=== PATIENT | female | born 1990 | race Caucasian/White ===

== ENCOUNTER 2016-09-09 01:11 | Day surgery (SDC) ==
[2016-09-09 01:47] LABS: URINE SOURCE CLEAN CATCH
[2016-09-09 01:55] LABS: BILIRUBIN URINE NEGATIVE (NEGATIVE); BLOOD URINE 1+ (NEGATIVE); CLARITY CLEAR (CLEAR); COLOR YELLOW; GLUCOSE URINE NEGATIVE (NEGATIVE); LEUKOCYTES URINE TRACE (NEGATIVE); NITRITE URINE NEGATIVE (NEGATIVE); PH URINE 6.5; PROTEIN URINE TRACE mg/dL (NEGATIVE); UROBILINOGEN URINE NORMAL
--- NOTE | 2016-09-09 02:00 | PROVIDER DOCUMENTATION ---
HPI-Abdominal Pain/GI Problem - General Source: patient - History of Present Illness-ABD Nature of Presenting Problems: 26 YOF STATES SHE WAS AT HOME TONIGHT AND STATES HER DOG WAS LAYING ON HER THE WAY IT DOES WHEN SHE NEEDS TO COME TO THE ED TO BE CHECKED.PT STATES ABDOMINAL PAIN X 1 WEEK. PT STATES SHE HAS HAD TRACE OF BLOOD AND MUCUS IN HER STOOL. Abdominal Pain Onset Location: reports: generalized abdomen Pain Radiation: reports: no radiation Quality of Pain: reports: aching Severity in ED: reports: moderate Onset/Duration: reports: 1 week ago Timing: reports: still present Activities at Onset: reports: light activity Modifying Factors: improves with: nothing Bruising or Bleeding Gums?: No Similar Symptoms Previously?: No Recently seen or treated by another doctor?: No <Lamberto Padgett - Last Filed: 09/09/16 01:53> <Carlos Wesley - Last Filed: 09/09/16 04:25> - General Chief Complaint: Abdominal Pain Stated Complaint: ABD PAIN Time Seen by Provider: 09/09/16 01:49 Allergies/Adverse Reactions: Patient Allergies Allergy/AdvReac Type Severity Reaction Status Date / Time No Known Allergies Allergy Verified 09/09/16 01:25 Home Medications: Home Medication List Medication Instructions Recorded Confirmed Last Taken Type Citalopram [Celexa] 1 tab PO DAILY 09/09/16 09/09/16 Unknown History Cyclobenzaprine [Flexeril] 1 tab PO TID 09/09/16 09/09/16 Unknown History Hydrocodone/Acetaminophen [Eclectic 1 tab PO TID 09/09/16 09/09/16 Unknown History 7.5-325 Tablet] Ibuprofen 1 tab PO Q6H PRN 09/09/16 09/09/16 Unknown History Levonorgestrel-Eth Estradiol 1 tab PO DAILY 09/09/16 09/09/16 Unknown History [Seasonale] Review of Systems - Adult - REVIEW OF SYSTEMS - ADULT Constitutional: denies: chills, fever Eyes: reports: no symptoms reported Ears, Nose, Mouth & Throat: reports: no symptoms reported Cardiovascular: denies: chest pain, palpitations, syncope Respiratory: denies: cough, shortness of breath, wheezing Gastrointestinal: reports: abdominal pain, nausea. denies: diarrhea, vomiting Genitourinary: reports: no symptoms reported Musculoskeletal: denies: back pain, neck pain Integumentary: reports: no symptoms reported Neurological: denies: dizziness/vertigo, headache/migraines, syncope Psychiatric: reports: no symptoms reported Endocrine: reports: no symptoms reported Hematologic/Lymphatic: reports: no symptoms reported Allergic/Immunologic: reports: no symptoms reported All Other Systems: Reviewed and Negative <Lamberto Padgett - Last Filed: 09/09/16 01:53> Past History - Adult - PAST MEDICAL HISTORY-ADULT Review of Records: reports: Nursing Assessment Review, Medications Reviewed - IMMUNIZATION STATUS Childhood Immunizations: See Nurse Assessment Flu Vaccine: See Nurse Assessment - SOCIAL HISTORY Smoking: denies Substance Use: denies Alcohol Use Frequency: never Living Situation: family <Lamberto Padgett - Last Filed: 09/09/16 01:53> Physical Exam-General - PHYSICAL EXAM-ADULT Initial Vital Signs Reviewed: Yes - CONSTITUTIONAL General Appearance: alert, mild distress - EYES Eyes: PERRL/EOMI, pink conjunctivae - HEAD, EARS, NOSE, MOUTH & THROAT HENMT: normocephalic/atraumatic, moist mucous membranes - NECK Neck: non-tender, full range of motion, supple - RESPIRATORY Respiratory: chest non-tender, lungs clear, normal breath sounds - CARDIOVASCULAR Cardiovascular: normal peripheral pulses, regular rate, rhythm - GASTROINTESTINAL (ABDOMEN) Abdominal Exam: normal bowel sounds, non tender, soft - LYMPHATIC Lymphatic: no adenopathy - MUSCULOSKELETAL Back Exam: normal inspection, no CVA tenderness, no vertebral tenderness Extremity: normal range of motion, non-tender - SKIN Integumentary: normal color, normal turgor, warm/dry - NEUROLOGIC Neurologic: grossly normal - PSYCHIATRIC Psych/Mental Status: oriented x 3 <Lamberto Padgett - Last Filed: 09/09/16 01:53> Departure <Lamberto Padgett - Last Filed: 09/09/16 01:53> - Departure Time of Disposition Order: 04:20 Certified Medical Emergency: Emergent <Carlos Wesley - Last Filed: 09/09/16 04:25> - Departure DIAGNOSIS: Appendicitis Disposition: ADMITTED INPATIENT 09 Condition: Critical Referrals: Lito English MD [Primary Care Provider] - Attestation - Scribe Verification/Attestation Scribe:: Lamberto Padgett Acting as Scribe for:: Carlos Wesley Scribe documention review:: This chart was documented by a scribe and accurately reflects the service the provider performed and the decisions made by the provider. <Lamberto Padgett - Last Filed: 09/09/16 01:53> Physician Attestation
[2016-09-09 02:17] LABS: URINE CULTURE PL NEEDED? YES; URINE EPITHELIAL CELLS <10 /HPF (<10); URINE RBC <10 /HPF (<10); URINE WBC <10 /HPF (<10)
[2016-09-09 02:19] LABS: UR AMPHETAMINES QUAL PRESUMPTIVE POSITIVE (NONE DETECT); UR BARBITUATES QUAL NONE DETECTED (NONE DETECT); UR BENZODIAZEPIN QUAL NONE DETECTED (NONE DETECT); UR CANNABINOIDS QUAL PRESUMPTIVE POSITIVE (NONE DETECT); UR COCAINE QUAL NONE DETECTED (NONE DETECT); UR MDMA QUAL NONE DETECTED (NONE DETECT); UR METHADONE QUAL NONE DETECTED (NONE DETECT); UR METHAMPHETAMINE QUAL NONE DETECTED (NONE DETECT); UR OPIATES QUAL PRESUMPTIVE POSITIVE (NONE DETECT); UR OXYCODONE QUAL NONE DETECTED (NONE DETECT); UR PCP QUAL NONE DETECTED (NONE DETECT); UR TCA QUAL NONE DETECTED (NONE DETECT)
[2016-09-09 02:33] LABS: MANUAL DIFF NEEDED? NO
[2016-09-09 02:45] LABS: BASO% 0.3 % (0.0-0.8); EOS# 0.15 X1000 (0.0-0.7); EOS% 1.3 % (0.0-10.0); HEMATOCRIT 36.4 % (37.0-47.0); HEMOGLOBIN 12.2 g/dL (12.0-16.0); IMM GRAN# 0.02 X1000 (0.0-0.04); IMM GRAN% 0.2 % (0.0-0.5); LYMPH# 4.19 X1000 (1.2-3.4); LYMPH% 35.1 % (20.5-51.1); MCH 27.7 PG (27-31); MCHC 33.5 g/dL (33-37); MCV 82.7 FL (81-99); MONO# 0.83 X1000 (0.11-0.59); NEUT% 56.1 % (42.2-75.2); PLT 249 X1000 (130-400)
[2016-09-09 03:09] LABS: AGAP 11; ALBUMIN 4.1 g/dL (3.5-5.0); ALKALINE PHOSPHATASE 45 U/L (32-104); AMYLASE 46 U/L (20-200); BUN 10 mg/dL (8-22); CALCIUM 9.3 mg/dL (8.8-10.2); CHLORIDE 103 mmol/L (98-107); COSMO 275; GOT 17 U/L (10-30); GPT 12 U/L (10-36); LIPASE 19 U/L (13-60); POTASSIUM 3.1 mmol/L (3.5-5.1); SODIUM 138 mmol/L (136-145); TCO2 24 mmol/L (25-35); TOTAL PROTEIN 6.2 g/dL (6.3-8.3)
[2016-09-09] MEDS ORDERED: KLOR-CON PO ONE (03:55)
[2016-09-09] MEDS ORDERED: ZOSYN 3.375 GM/NS 50 ML IV ONE (04:20)
[2016-09-09] MEDS ORDERED: ZOFRAN IV PRN (04:22)
[2016-09-09] MEDS ORDERED: NS 1,000 ML IV SCH (04:30)
[2016-09-09] MEDS: MORPHINE IV PRN ×3 (06:03→15:59)
[2016-09-09] MEDS ORDERED: NORCO-7.5 PO PRN (07:52)
[2016-09-09] MEDS ORDERED: TYLENOL ARTHRITIS PO PRN (07:53)
[2016-09-09] MEDS ORDERED: SODIUM CHLORIDE 0.9% INJ PRN (07:54)
[2016-09-09] MEDS ORDERED: PHENERGAN IV PRN (07:54)
[2016-09-09] MEDS ORDERED: MARCAINE 0.25% PF/EPI 1:200,000 ONE (08:14)
[2016-09-09] MEDS ORDERED: LR 1,000 ML ONE (08:14)
--- NOTE | 2016-09-09 08:16 | HISTORY AND PHYSICAL ---
HISTORY OF PRESENT ILLNESS: Monica Diallo is a 26-year-old, white female who is a patient Dr. Lito English. For the last week, she has been experiencing lower abdominal pain and bloating. She presented to the [facility] Emergency Department because of this abdominal pain localized to her right lower quadrant. She came to the ER with a friend. She was evaluated at [facility] which included a CT scan of her abdomen and pelvis which suggested appendicitis, as did her exam. I was notified early this morning. The patient was transferred from [place] to [facility] for possible surgical treatment. 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 She has had colonoscopy and upper endoscopy. MEDICATIONS: control pills. ALLERGIES: No known drug allergies. SOCIAL HISTORY: She works in [employer]. She recently applied for Medicaid because she went to a clinic recently for a Pap smear and to have control pills prescribed. She recently broke up with her boyfriend. She lives alone in an apartment and has at least 2 dogs which she is concerned about. She had no family that she wanted me to contact. She does smoke. REVIEW OF SYSTEMS: A 14-point review of systems was performed and except for the history of present illness and the past medical history, it is negative. FAMILY HISTORY: Noncontributory. PHYSICAL EXAMINATION: GENERAL: On examination, Ms. Diallo is a young, tall, slim, white female in no acute distress. HEENT EXAMINATION: No jaundice. No oral lesions. LYMPHATICS: No cervical or supraclavicular lymphadenopathy. HEART: Regular rate. LUNGS: Clear to auscultation and percussion bilaterally. ABDOMEN: Flat. There was no previous scar. No evidence of hernia. She was tender to palpation in the right lower quadrant but she did not have evidence of an acute abdomen or any abdominal distention. She had mild right costovertebral tenderness. There was no palpable abdominal mass. RECTAL/VAGINAL: Examinations were not performed. EXTREMITIES: She does have palpable peripheral pulses. No peripheral edema. NEUROLOGICAL: She is alert and oriented x3, and appropriate. DIAGNOSTIC DATA: Her white blood cell count was 11. Electrolytes were within normal limits. A CT scan reported to me by the ED physician suggests early appendicitis. There is no final report of the CT scan available at this time. IMPRESSION: Acute appendicitis. PLAN: Laparoscopic, possible open appendectomy this morning. I have discussed the procedure in detail with her at the bedside in room 454, [address] [place]. We specifically discussed the risks of surgery which include bleeding, infection, injury to intra-abdominal contents with trocar placement, removal of a normal appendix, conversion of a laparoscopic to open appendectomy, possible ruptured appendix requiring prolonged hospitalization and possibly a drain left at the time of surgery, leakage of the appendiceal stump requiring reoperation for infection. She understands different treatment options for acute appendicitis including IV antibiotics. She understands the operation and its risks, and she wants to proceed with surgery.
--- NOTE | 2016-09-09 08:20 | Diag Imaging Result Document ---
PROCEDURE NAME: CT ABD/PELVIS W/ IV CONT ONLY - 09/09/2016 CT ABDOMEN AND PELVIS WITH INTRAVENOUS CONTRAST: TECHNIQUE: Dose-reduction protocol. FINDINGS: The lower lungs are clear. Normal liver, spleen, pancreas, gallbladder, and adrenal glands. There are nonobstructing renal stones bilaterally. Normal enhancement of the kidneys. No hydronephrosis. Normal aorta. No bowel obstruction. The appendix is distended and there is mild adjacent inflammation. No free air. No abscess. There are bilateral small ovarian cysts. Normal uterus. The urinary bladder is not distended. IMPRESSION: 1. Acute appendicitis. 2. Nonobstructing renal stones. A preliminary report was given at 4:10 a.m.
[2016-09-09] MEDS ORDERED: DIPRIVAN 1% ONE (08:45)
[2016-09-09] MEDS ORDERED: VERSED ONE (08:45)
[2016-09-09] MEDS ORDERED: FENTANYL ONE (08:45)
[2016-09-09] MEDS ORDERED: NICODERM PATCH TD SCH (09:00)
[2016-09-09] MEDS: LR 1,000 ML IV SCH ×2 (10:11→11:06)
--- NOTE | 2016-09-09 15:30 | OPERATIVE NOTE ---
PROCEDURE DATE: 09/09/2016 PREOPERATIVE DIAGNOSIS: Acute appendicitis. POSTOPERATIVE DIAGNOSIS: Acute appendicitis. PRINCIPAL PROCEDURE: Laparoscopic appendectomy. SURGEON: Halina Lancaster MD. ANESTHESIA: General in addition to local anesthetic. ESTIMATED BLOOD LOSS: 25 mL. DRAINS: None. INDICATIONS: Monica Diallo is a 26-year-old white female who has developed right lower quadrant abdominal pain. Was initially evaluated at [facility] Emergency Department. A CT scan suggested acute appendicitis, as did her exam. She was transferred to [facility] for surgical care. FINDINGS: She had acute appendicitis without evidence of rupture. DESCRIPTION OF PROCEDURE: The patient was brought to the operating room, placed supine, received general anesthesia, was intubated. Mistry catheter tube was placed. Her abdomen was prepped and draped within the sterile field. We began the procedure by making a curvilinear incision below the umbilicus with a 15-blade scalpel. A Veress needle was introduced through this incision into the abdomen. Pneumoperitoneum was established. The Veress needle was removed and we used step trocars. I placed 11 mm step trocar through this incision into the abdomen. The camera was placed through this port and the abdomen was explored for injury, there was none. Two other trocars were placed under direct vision of the camera. I placed a 12 mm port through a small transverse incision suprapubic area under direct vision of the camera and I also placed a 5 mm step trocar in the right lower quadrant of the abdomen again under direct vision of the camera. The camera was at the umbilical port. I used a grasper and a dissector in our 2 lower ports. We easily identified the appendix. It was inflamed more distally than proximally. It was not ruptured. I used blunt dissection to dissect around the base of the appendix. I used an Endo NIRMAL stapler, came across the base of the appendix and then a reload to come across the appendiceal mesentery. I used an Endobag to remove the appendix through our 12 mm port site. I placed the port back through this incision and the area of operation was thoroughly inspected, irrigated, and the irrigation was removed with suction. There was no evidence of ongoing bleeding and we were happy with the appendiceal stump. No drains were left. The liver appeared to be healthy as did the gallbladder. We looked at both ovaries and they appeared to be normal. No other intraabdominal pathology was noted. All trocars removed under direct vision the camera. The pneumoperitoneum was allowed to dissipate. I used [id number] 2-0 Vicryl stitches to reapproximate the fascia in our midline trocar sites. The skin was closed with 4-0 Monocryl subcuticular stitches. Dressings were applied. Mistry catheter tube was removed. She will go to the recovery room and then return to the floor.
[2016-09-09 16:28] VITALS: BP 128/80
[2016-09-10] MEDS ORDERED: XYLOCAINE-MPF 2% ONE (08:50)
[2016-09-10] MEDS ORDERED: ZOFRAN ONE (08:50)
[2016-09-10] MEDS ORDERED: DECADRON ONE (08:50)
[2016-09-10] MEDS ORDERED: NORCURON ONE (08:50)
[2016-09-10] MEDS ORDERED: QUELICIN (DOSE) ONE (08:50)
[2016-09-10] MEDS ORDERED: ROBINUL ONE (08:50)
[2016-09-10] MEDS ORDERED: NEOSTIGMINE ONE (08:50)
[2016-09-10] MEDS ORDERED: LR 1,000 ML ONE (08:50)
== END 2016-09-09 17:57 | disposition home or self-care (01) ==
LOC: P.ED 01:11 → 4N 04:33 → UNDOADMOB 04:33 → OPS 04:33 → UNDODISOB 17:57 → OPS 17:57
PROVIDERS: ATTEND Surgery
DX: K35.80 Unspecified acute appendicitis (principal); R10.31 Right lower quadrant pain; K92.1 Melena; R11.0 Nausea; M47.812 Spondylosis without myelopathy or radiculopathy, cervical region; F17.200 Nicotine dependence, unspecified, uncomplicated; N20.0 Calculus of kidney; M50.23 Other cervical disc displacement, cervicothoracic region; Z79.899 Other long term (current) drug therapy
CPT/HCPCS: 74177; 80053; 80305; 81001; 81025; 82150; 83690; 83735; 85025; 87088; 88304; 96365; G0480; J2250; J2270; J2543; J3010; J7030; J7120; Q9967; 80320